=== PATIENT | female | born 1995 | race Caucasian/White ===

== ENCOUNTER 2017-08-30 17:33 | Emergency (ER) | payer OTHER ==
[~2017-08-30] VITALS: Ht 165.1 cm; Wt 54.5 kg
[2017-08-30 17:35] VITALS: BP 137/89; PULSE 93; RESP 18; TEMP 97.7; O2SAT 100
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
[2017-08-30] MEDS ORDERED: ROBA500T PO (20:23)
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
[2017-08-30] MEDS ORDERED: DICL75TA PO (20:46)
== END 2017-08-30 20:50 | disposition home or self-care (01) ==
LOC: NEPK 17:33
DX: S06.0X1A Concussion with loss of consciousness of 30 minutes or less, initial encounter (principal); S13.4XXA Sprain of ligaments of cervical spine, initial encounter; V49.9XXA Car occupant (driver) (passenger) injured in unspecified traffic accident, initial encounter
CPT/HCPCS: 70450; 71046; 72125; 99284